=== PATIENT | male | born 1995 | race Caucasian/White ===

== ENCOUNTER 2020-08-06 08:02 | Emergency (ER) | payer BC, SELFPAY ==
[~2020-08-06] VITALS: Ht 182.9 cm; Wt 72.6 kg
[2020-08-06 08:40] VITALS: BP 121/77
[2020-08-06] MEDS ORDERED: ALUMINUM HYD/MAG/SIMETHICONE 30 ML UDC PO ONE (09:05)
[2020-08-06] MEDS ORDERED: ONDANSETRON 4 MG ODT PO ONE (09:05)
--- NOTE | 2020-08-06 10:47 | NUR ---
C/O N/V STARTING AROUND 1AM. DENIES FEVER. LBM TODAY AND NORMAL PER PT. PT REPORTS DRINKING "QUITE A FEW BEERS" LAST NIGHT.
--- NOTE | 2020-08-06 10:47 | NUR ---
Patient discharged with v/s stable. Written and verbal after care instructions given and explained. Patient alert, oriented and verbalized understanding of instructions. Ambulatory with steady gait. All questions addressed prior to discharge. ID band removed. Patient advised to follow up with PMD. Rx of mylanta and zofran given. Patient educated on indication of medication including possible reaction and side effects. Opportunity to ask questions provided and answered.
[2020-08-06 10:48] VITALS: BP 121/77
== END 2020-08-06 10:47 | disposition home or self-care (01) ==
LOC: MED 08:02
DX: K29.70 Gastritis, unspecified, without bleeding (principal); R11.2 Nausea with vomiting, unspecified
CPT/HCPCS: 99283; Q0162